=== PATIENT | male | born 2000 | race Caucasian/White ===

== ENCOUNTER 2022-01-15 11:29 | Emergency (ER) | payer OTHER ==
[~2022-01-15] VITALS: Ht 182.9 cm; Wt 70.5 kg
[2022-01-15 11:34] VITALS: BP 106/74
--- NOTE | 2022-01-15 11:58 | NUR ---
Patient seen, assessed and discharged by provider.
== END 2022-01-15 11:59 ==
LOC: ER 11:30
DX: S00.83XA Contusion of other part of head, initial encounter (principal); S60.021A Contusion of right index finger without damage to nail, initial encounter; Z02.89 Encounter for other administrative examinations; X58.XXXA Exposure to other specified factors, initial encounter; Y93.89 Activity, other specified; Y92.89 Other specified places as the place of occurrence of the external cause; Y99.8 Other external cause status
CPT/HCPCS: 99283